=== PATIENT | male | born 1990 | race Hispanic/Latino ===

== ENCOUNTER 2022-09-08 14:59 | Emergency (ER) | payer SELFPAY ==
--- NOTE | ~2022-09-08 | XR_ITS ---
EXAMINATION: XR chest 2V Exam Date/Time: 09/08/2022 15:32 LIBRARY ASSISTANT HISTORY: Fever, cough x 4days. no cardiac hx noted Comparison: None available. RESULT: Lines, tubes, and devices: None. Lungs and pleura: Focal consolidation in the left lower lobe. Cardiomediastinal silhouette: Normal. Other: No acute osseous or upper abdominal finding. IMPRESSION: Left lower lobe consolidation, consistent with pneumonia in the appropriate clinical context. Reviewed, dictated and finalized at location K. AR[facility] ASSISTANT IMPRESSION: Left lower lobe consolidation, consistent with pneumonia in the appropriate cli nical context.
[2022-09-08 15:09] VITALS: BP 150/92; PULSE 100; RESP 16; TEMP 36.9; O2SAT 100
[2022-09-08 16:42] LABS: Influenza A QL RT-PCR Positive (Negative); Influenza B QL RT-PCR Negative (Negative); SARS-CoV-2 RNA PCR Negative
--- NOTE | 2022-09-08 17:09 | ED.URI ---
HPI - URI/Sore Throat General Chief Complaint: Upper Respiratory Infection Stated Complaint: coughing, cold symptoms Time Seen by Provider: 09/08/22 15:15 Source: patient and RN notes reviewed Mode of arrival: ambulatory Limitations: no limitations History of Present Illness HPI Narrative: This is a 32 year old male who presents for evaluation of cough. Patient reports for 1 week he has had flu like symptoms. He reports cough, body aches, fever, chills and nausea. He has not had fever in 3 days. He had vomiting days ago but no vomiting for 2 days. He reports food does taste bad. He denies shortness of breath. He reports left back pain on ly with coughing . He reports his and child tested positive for flu. Related Data Allergies Allergy/AdvReac Type Severity Reaction Status Date / Time No Known Allergies Allergy Verified 09/08/22 15:08 Review of Systems Constitutional: Constitutional: Reports fever(s) and Denies weakness ENT: Reports nasal congestion and Reports sore throat Cardiovascular: Cardiovascular: Denies syncope, Denies rapid heart rate, Denies irregular heart rhythm, Denies leg edema and Denies dyspnea Respiratory: Respiratory: Denies chest congestion, Reports cough, Denies hemoptysis, Denies excessive phlegm production and Denies dyspnea Gastrointestinal: Gastrointestinal: Denies abdominal pain, Denies hematochezia, Denies diarrhea and Denies vomiting Genitourinary: Genitourinary: Denies hematuria, Denies dysuria, Denies penile discharge and Denies testicular pain Musculoskeletal: Musculoskeletal: Denies joint swelling, Denies loss of height and Denies muscle weakness Neurologic: Denies syncope, Denies focal weakness and Denies weakness PMFSH Past Medical History Medical History (Updated 09/08/22 @ 17:22 by Patty Mills MD) Patient denies medical problems Social History Social History (Updated 09/08/22 @ 17:18 by Patty Mills MD) Smoking status: Never smoker Exam Const: General: healthy appearing, no acute distress and alert Nutritional Appearance: well nourished Orientation/consciousness: patient oriented x3 Limitations: no limitations HENMT: Head: normal to inspection Face/Nose/Sinus: Normal external nose present Face and sinus: normal facial exam Eyes: EOM: EOMs intact bilaterally Chest: Chest palpation & inspection: normal inspection of the chest Resp: Effort & Inspection: normal respiratory effort Auscultation: clear to auscultation bilaterally Cardio: Rate: regular rate Rhythm: regular rhythm Heart sounds: no murmurs GI: GI Palp: Yes Soft to palpation, No Tenderness to palpation present (GI), No Guarding due to palpation present (GI) and No Rigid due to palpation Auscultation: normal bowel sounds Skin: General skin exam: normal color Rashes: no rashes Wounds: no wounds Neuro: General: patient oriented x3, moves all extremities and CN's II-XI intact bilaterally Extrem: General: normal to inspection Psych: Mental Status: mental status grossly normal Affect: normal affect Attitude: cooperative Course Reevaluation(s) Reevaluation #1: Patient is well appearing with no signicant vital sign abnormalities. Chest xray reports focal consolidation. He will be started on antibiotics. I Discussed that he is outside window for tamiflu to have any benefit. Date: 09/08/22 Time: 17:18 Vital Signs Vital signs: Vital Signs Temperature 98.5 F 09/08/22 15:09 Pulse Rate 100 09/08/22 15:09 Respiratory Rate 16 09/08/22 15:09 Blood Pressure 150/92 H 09/08/22 15:09 Pulse Oximetry 100 09/08/22 15:09 Temperature 98.5 F 09/08/22 15:09 Pulse Rate 97 09/08/22 17:44 Respiratory Rate 18 09/08/22 17:44 Blood Pressure 154/92 H 09/08/22 17:44 Pulse Oximetry 98 09/08/22 17:44 MDM - URI/Sore Throat Lab Data Labs: Lab Results 09/08/22 Range/Units 15:58 Influenza A (RT-PCR) Positive (Negative) Influenza B (RT-PCR) Ne
[2022-09-08] MEDS: cefTRIAXone 1 GM VIAL IM (17:34)
--- NOTE | 2022-09-08 17:37 | PC.NURSE ---
Lidocaine used for Rocephin reconstitution.
[2022-09-08 17:44] VITALS: BP 154/92; PULSE 97; RESP 18; O2SAT 98
== END 2022-09-08 17:44 | disposition home or self-care (01) ==
PROVIDERS: Emergency Provider General Practice
DX: J10.00 Influenza due to other identified influenza virus with unspecified type of pneumonia (principal); Z20.822 Contact with and (suspected) exposure to COVID-19
CPT/HCPCS: 71046; 87636; 96372; 99283; J0696